=== PATIENT | female | born 1960 | race Caucasian/White ===

== ENCOUNTER 2018-08-10 14:30 | Inpatient (IN) | payer OTHER ==
[2018-08-10 15:24] VITALS: BMI 29.9
--- NOTE | 2018-08-10 18:08 | HP ---
CIWA Score Nausea/Vomitin-No Nausea/No Vomiting Muscle Tremors: 4-Moderate,w/Arms Extend Anxiety: 4-Mod. Anxious/Guarded Agitation: 2 Paroxysmal Sweats: 1-Minimal Palms Moist Orientation: 0-Oriented Tacttile Disturbances: 0-None Auditory Disturbances: 1-Very Mild Visual Disturbances: 0-None Headache: 0-None Present CIWA-Ar Total Score: 12 - Admission Criteria OASAS Guidelines: Admission for Medically Managed Detox: Requires at least one of the followin. CIWA greater than 12 2. Seizures within the past 24 hours 3. Delirium tremens within the past 24 hours 4. Hallucinations within the past 24 hours 5. Acute intervention needed for co occurring medical disorder 6. Acute intervention needed for co occurring psychiatric disorder 7. Severe withdrawal that cannot be handled at a lower level of care (continued vomiting, continued diarrhea, abnormal vital signs) requiring intravenous medication and/or fluids 8. Patient presents the following: CIWA greater than 12 Admission Criteria Met: Admission criteria met Admission ROS S - [facility] Chief Complaint: " my probation send me" Allergies/Adverse Reactions: Allergies Allergy/AdvReac Type Severity Reaction Status Date / Time Sulfa (Sulfonamide AdvReac Severe Difficulty Verified 08/10/18 18:15 Antibiotics) Breathing History of Present Illness: 57 yo female with hx alcohol dependence is here seeking detox for the first time. Reports currently under probation for DWI which occurred December 2017, reports completed rehab at [facility] April 2018. Reports currently drinks two bottles of wine per day with last drink today. PMHX: Pre-diabetes, HTN, anxiety, HDL. Denies suicidal / homicidal ideation or hx of suicidal attempt. Exam Limitations: No Limitations - Ebola screening Have you traveled outside of the country in the last 21 days: No Have you had contact with anyone from an Ebola affected area: No Have you been sick,other than usual withdrawal symptoms: No Do you have a fever: No - Review of Systems Constitutional: No Symptoms Reported EENT: reports: No Symptoms Reported Respiratory: reports: No Symptoms reported Cardiac: reports: No Symptoms Reported : reports: No Symptoms Reported Musculoskeletal: reports: No Symptoms Reported Integumentary: reports: Flushing, Pruritus Neuro: reports: No Symptoms reported Endocrine: reports: Increased Thirst Hematology: reports: No Symptoms Reported Psychiatric: reports: Orientated x3, Anxious Patient History - Patient Medical History Hx Anemia: No Hx Asthma: No Hx Chronic Obstructive Pulmonary Disease (COPD): No Hx Cancer: No Hx Cardiac Disorders: No Hx Congestive Heart Failure: No Hx Hypertension: Yes Hx Hypercholesterolemia: Yes Hx Pacemaker: No HX Cerebrovascular Accident: No Hx Seizures: No Hx Dementia: No Hx Diabetes: Yes (Pre Diabetes on diet mngmt ) Hx Gastrointestinal Disorders: No Hx Liver Disease: No Hx Genitourinary Disorders: No Hx Sexually Transmitted Disorders: No Hx Renal Disease (ESRD): No Hx Thyroid Disease: No Hx Human Immunodeficiency Virus (HIV): No Hx Hepatitis C: No Hx Depression: No Hx Suicide Attempt: No Hx Bipolar Disorder: No Hx Schizophrenia: No Other Medical History: Anxiety, Buerger's disease - Patient Surgical History Past Surgical History: No - PPD History Previous Implant?: No Documented Results: Negative w/o proof PPD to be Administered?: Yes - Reproductive History Patient is a Female of Child Bearing Age (11 -55 yrs old): No - Smoking Cessation Smoking history: Current every day smoker Have you smoked in the past 12 months: Yes Aproximately how many cigarettes per day: 10 Hx Chewing Tobacco Use: No Initiated information on smoking cessation: Yes 'Breaking Loose' booklet given: 08/10/18 - Substance & Tx. History Hx Alcohol Use: Yes Hx Substance Use: Yes Substance Use Type: Alcohol Hx Substance Use Treatment: Yes (outpatient [facility] January - May 05 2018) - Substances Abused Alcohol Route: Oral Frequency: Daily Amount used: 2 bottles of wine Age of first use: 14 Date of Last Use: 08/10/18 Family Disease History - Family Disease History Family Disease History: Diabetes: Father (alcoholism ), Mother (alcoholism ) Admission Physical Exam S - Vital Signs Vital Signs: Vital Signs - 24 hr 08/10/18 15:22 Temperature 99.1 F Pulse Rate 118 H Respiratory 20 Rate Blood Pressure 153/88 - Physical General Appearance: Yes: Appropriately Dressed, Moderate Distress, Tremorous, Sweating, Anxious HEENTM: Yes: EOMI, Hearing grossly Normal, Normal ENT Inspection, Normocephalic , Normal Voice, ANJUM, Pharynx Normal, Tm's normal Respiratory: Yes: Within Normal Limits Neck: Yes: Within Normal Limits Breast: Yes: Breast Exam Deferred Cardiology: Yes: Regular Rhythm, Regular Rate Abdominal: Yes: Normal Bowel Sounds, Non Tender, Flat, Soft Genitourinary: Yes: Within Normal Limits Back: Yes: Normal Inspection Musculoskeletal: Yes: full range of Motion, Gait Steady, Pelvis Stable Extremities: Yes: Normal Capillary Refill, Normal Inspection, Normal Range of Motion Neurological: Yes: building maintenance custodian II-XII NML intact, Fully Oriented, Alert, Motor Strength 5/5, Depressed Affect (tearful during assessment) Integumentary: Yes: Normal Color, Warm, Moist Lymphatic: Yes: Within Normal Limits - Addiitonal Findings: Others' Prescriptions Patient Name: Ksenia Faust Date: 1960 Address: [address] [place] [id number] Sex: Female Rx Written Rx Dispensed Drug Quantity Days Supply Prescriber Name 08/06/2018 08/06/2018 phentermine 37.5 mg tablet 30 30 MD Alford George 08/06/2018 08/06/2018 alprazolam 0.25 mg tablet 14 7 MD Alford George 07/09/2018 07/09/2018 phentermine 37.5 mg tablet 30 30 MD Alford George - Diagnostic (1) Prediabetes Current Visit: Yes Status: Chronic (2) Alcohol dependence with withdrawal Current Visit: Yes Status: Acute Qualifiers: Complication of substance-induced condition: uncomplicated Qualified Code(s ): F10.230 - Alcohol dependence with withdrawal, uncomplicated (3) Hypertension Current Visit: Yes Status: Chronic Qualifiers: Hypertension type: essential hypertension Qualified Code(s): I10 - Essential (primary) hypertension (4) Buerger disease Current Visit: Yes Status: Acute (5) Elevated blood pressure reading Current Visit: Yes Status: Acute Cleared for Admission [facility] - Detox or Rehab [facility] Level of Care: Medically Managed Detox Regimen/Protocol: Librium [facility] Breath Alcohol Content Breath Alcohol Content: 0 Urine Pregancy Test - Result Urine Test Results: Negative- NO Line Present Urine Drug Screen - Results Drug Screen Negative: No Urine Drug Screen Results: AMP-Amphetamines, BZO-Benzodiazepines Inpatient Rehab Admission - Rehab Decision to Admit Inpatient rehab admission?: No
[2018-08-10] MEDS ORDERED: MAGNESIUM HYDROX 2400MG/30ML ORAL SUSPENSION 30 ML CUP PO PRN (18:31)
[2018-08-10] MEDS ORDERED: P-EPHED 60MG/TRIPROLIDI 2.5MG TABLET PO PRN (18:31)
[2018-08-10] MEDS ORDERED: MENTHOL/PHENOL 1 EACH UD MM PRN (18:31)
[2018-08-10] MEDS ORDERED: MAG HYDROX/AL HYDROX/SIMETH 30 ML UNIT-DOSE CUP PO PRN (18:31)
[2018-08-10] MEDS ORDERED: chlordiazePOXIDE HCL 25 MG CAPSULE PO PRN (18:31)
[2018-08-10] MEDS ORDERED: LOPERAMIDE HCL 2 MG CAPSULE PO PRN (18:31)
[2018-08-10] MEDS ORDERED: MAGNESIUM CITRATE 300 ML BOTTLE PO PRN (18:31)
[2018-08-10] MEDS ORDERED: IBUPROFEN 400 MG TABLET (FP) PO PRN (18:31)
[2018-08-10] MEDS ORDERED: guaiFENesin/D-METHORPHAN HB 10 ML UNIT-DOSE CUPS PO PRN (18:31)
[2018-08-10] MEDS ORDERED: ACETAMINOPHEN 325 MG TABLET (FP) PO PRN (18:31)
[2018-08-10] MEDS ORDERED: MELATONIN 5 MG TABLETS PO PRN (22:00)
[2018-08-10] MEDS: ATENOLOL 50 MG TABLET (FP) PO SCH (22:28)
[2018-08-10] MEDS: chlordiazePOXIDE HCL 25 MG CAPSULE PO SCH (22:28)
[2018-08-10] MEDS: THIAMINE HCL 100 MG TABLET (FP) PO SCH (22:29)
[2018-08-10 23:41] LABS: URINE APPEARANCE CLEAR; URINE BILIRUBIN NEGATIVE (<2.0 mg/dL); URINE COLOR LTYELLOW; URINE GLUCOSE (UA) NEGATIVE (NEGATIVE); URINE KETONE NEGATIVE (NEGATIVE); URINE LEUK ESTERASE NEGATIVE (NEGATIVE); URINE NITRITE NEGATIVE (NEGATIVE); URINE PROTEIN NEGATIVE (NEGATIVE); URINE UROBILINOGEN NEGATIVE mg/dL (0.2-1.0)
[2018-08-11] MEDS: hydrOXYzine PAMOATE 50 MG CAPSULE (FP) PO PRN ×4 (03:03→17:04)
[2018-08-11] MEDS: chlordiazePOXIDE HCL 25 MG CAPSULE PO SCH ×4 (06:15→22:30)
--- NOTE | 2018-08-11 09:27 | CONSULT ---
[facility] Psychiatric Consult - Data Date of interview: 08/11/18 Admission source: [facility] Identifying data: Patient is a 57 year old female, mother of three, domiciled, and currently unemployed (was employed at [employer]). This is patient's first admission to detox at [facility]. Patient admitted to for alcohol dependence. Substance Abuse History: Smoking Cessation. Smoking history: Current every day smoker. Have you smoked in the past 12 months: Yes. Aproximately how many cigarettes per day: 10. Hx Chewing Tobacco Use: No. Initiated information on smoking cessation: Yes. 'Breaking Loose' booklet given: 08/10/18. - Substance & Tx. History. Hx Alcohol Use: Yes. Hx Substance Use: Yes. Substance Use Type : Alcohol. Hx Substance Use Treatment: Yes (outpatient [facility] January - May 05 2018). - Substances Abused. Alcohol. Route: Oral. Frequency: Daily. Amount used: 2 bottles of wine. Age of first use: 14. Date of Last Use: 07/29 Medical History: hypertension, hypercholesterolemia, diabetes, buerger's disease Psychiatric History: Patient reports one psychiatric hospitalization at [facility] after throwing herself in front of her vehicle to prevent it from being towed. She was discharged after one night. Patient denies h/o outpatient care and suicide attempt. At present, patient is experiencing difficulty sleeping. Physical/Sexual Abuse/Trauma History: denies. Additional Comment: Was informed by probabtion officer that she needs to attend detox. Patient unsure if this is court mandated. Mental Status Exam - Mental Status Exam Alert and Oriented to: Time, Place, Person Cognitive Function: Good Patient Appearance: Well Groomed Mood: Anxious Affect: Appropriate Patient Behavior: Talkative, Cooperative Speech Pattern: Appropriate Voice Loudness: Normal Thought Process: Intact, Goal Oriented Thought Disorder: Not Present Hallucinations: Denies Suicidal Ideation: Denies Homicidal Ideation: Denies Insight/Judgement: Poor Sleep: Fair Appetite: Fair Muscle strength/Tone: Normal Gait/Station: Normal Psychiatric Findings - Problem List ([place] 1, 2,3) (1) Alcohol-induced sleep disorder Current Visit: Yes Status: Acute (2) Alcohol dependence with withdrawal Current Visit: Yes Status: Acute Qualifiers: Complication of substance-induced condition: uncomplicated Qualified Code(s ): F10.230 - Alcohol dependence with withdrawal, uncomplicated - Initial Treatment Plan Initial Treatment Plan: Psychoeducation provided. Detoxification in progress. Will increase Melatonin 5mg to 10mg qhs. Observation.
[2018-08-11] MEDS: PRENATAL VITAMINS W/ FOLIC ACID TABLET (FP) PO SCH (10:21)
[2018-08-11] MEDS: NICOTINE 21 MG/24 HOURS TOPICAL PATCH TD SCH (10:21)
[2018-08-11 10:55] LABS: ALBUMIN 4.2 g/dl (3.4-5.0); ALK PHOS 76 U/L (45-117); ANION GAP 7 MMOL/L (8-16); BILIRUBIN,TOTAL 0.4 mg/dL (0.2-1); BLOOD UREA NITROGEN 15 mg/dL (7-18); CALCIUM 9.6 mg/dL (8.5-10.1); CHLORIDE 106 mmol/L (98-107); CO2 29 mmol/L (21-32); CREATININE 0.6 mg/dL (0.55-1.3); GLUCOSE,RANDOM 84 mg/dL (74-106); POTASSIUM 4.3 mmol/L (3.5-5.1); SGOT/AST 18 U/L (15-37); SGPT/ALT 46 U/L (13-61); SODIUM 142 mmol/L (136-145)
[2018-08-11 10:58] LABS: HEMOGLOBIN 13.6 GM/dL (10.7-15.3); MCH 32.1 pg (25.7-33.7); MEAN CELL VOLUME 94.4 fl (80-96); MEAN PLT VOLUME 11.1 fl (7.5-11.1); PLATELET COUNT 239 K/MM3 (134-434); RBC 4.24 M/mm3 (3.60-5.2); RDW 14.2 % (11.6-15.6); WHITE BLOOD COUNT 7.5 K/mm3 (4.0-10.0)
--- NOTE | 2018-08-11 11:01 | PN ---
S CIWA - CIWA Score Nausea/Vomitin-No Nausea/No Vomiting Muscle Tremors: 3 Anxiety: 2 Agitation: 3 Paroxysmal Sweats: 2 Orientation: 0-Oriented Tacttile Disturbances: 0-None Auditory Disturbances: 0-None Visual Disturbances: 0-None Headache: 0-None Present CIWA-Ar Total Score: 10 [facility] Progress Note (SOAP) Subjective: sweats anxiety irritable Im on a diet pill but its ok if i cant get it during my stay. Objective: 08/11/18 10:59 Vital Signs Temperature 97.7 F 08/11/18 09:44 Pulse Rate 90 08/11/18 09:44 Respiratory Rate 18 08/11/18 09:44 Blood Pressure 149/77 08/11/18 09:44 O2 Sat by Pulse Oximetry (%) Laboratory Tests 08/10/18 08/11/18 22:45 07:00 Sodium 142 Potassium 4.3 Chloride 106 Carbon Dioxide 29 Anion Gap 7 L BUN 15 Creatinine 0.6 Creat Clearance w eGFR > 60 Random Glucose 84 Calcium 9.6 Total Bilirubin 0.4 AST 18 ALT 46 Alkaline Phosphatase 76 Total Protein 7.0 Albumin 4.2 Urine Color Ltyellow Urine Appearance Clear Urine pH 5.0 Ur Specific [place] 1.017 Urine Protein Negative Urine Glucose (UA) Negative Urine Ketones Negative Urine Blood Negative Urine Nitrite Negative Urine Bilirubin Negative Urine Urobilinogen Negative Ur Leukocyte Esterase Negative aaox3 ambulating no acute distress Assessment: 08/11/18 11:00 withdrawal sx Plan: continue detox increase fluids pt was told her diet pills are a stimulant and unsafe to take during her stay with all the medication we are providing. pt is in agreement and will take it after she completes her detox.
--- NOTE | 2018-08-11 15:46 | EKG ---
Test Reason : Blood Pressure : / mmHG Vent. Rate : 106 BPM Atrial Rate : 106 BPM P-R Int : 168 ms QRS Dur : 086 ms QT Int : 360 ms P-R-T Axes : 063 053 061 degrees QTc Int : 478 ms SINUS TACHYCARDIA OTHERWISE NORMAL ECG NO PREVIOUS ECGS AVAILABLE Confirmed by MATT TIJERINA MD ([id number]) on 08/11/2018 3:46:00 PM Referred By: Confirmed By:MATT TIJERINA MD
[2018-08-11] MEDS: ATENOLOL 50 MG TABLET (FP) PO SCH (22:30)
[2018-08-11] MEDS: THIAMINE HCL 100 MG TABLET (FP) PO SCH (22:30)
[2018-08-11] MEDS: MELATONIN 5 MG TABLETS PO PRN (22:31)
[2018-08-12] MEDS: chlordiazePOXIDE HCL 25 MG CAPSULE PO SCH ×3 (05:42→17:21)
--- NOTE | 2018-08-12 11:47 | PN ---
[facility] CIWA - CIWA Score Nausea/Vomitin-No Nausea/No Vomiting Muscle Tremors: 3 Anxiety: 2 Agitation: 2 Paroxysmal Sweats: 2 Orientation: 0-Oriented Tacttile Disturbances: 0-None Auditory Disturbances: 0-None Visual Disturbances: 0-None Headache: 0-None Present CIWA-Ar Total Score: 9 S Progress Note (SOAP) Subjective: anxiety sweats Objective: 08/12/18 11:46 Vital Signs Temperature 98.1 F 08/12/18 09:30 Pulse Rate 99 H 08/12/18 09:30 Respiratory Rate 18 08/12/18 09:30 Blood Pressure 145/55 L 08/12/18 09:30 O2 Sat by Pulse Oximetry (%) Laboratory Tests 08/10/18 08/11/18 08/11/18 22:45 07:00 07:00 WBC 7.5 RBC 4.24 Hgb 13.6 Hct 40.0 MCV 94.4 MCH 32.1 MCHC 34.0 RDW 14.2 Plt Count 239 MPV 11.1 Sodium 142 Potassium 4.3 Chloride 106 Carbon Dioxide 29 Anion Gap 7 L BUN 15 Creatinine 0.6 Creat Clearance w eGFR > 60 Random Glucose 84 Calcium 9.6 Total Bilirubin 0.4 AST 18 ALT 46 Alkaline Phosphatase 76 Total Protein 7.0 Albumin 4.2 Urine Color Ltyellow Urine Appearance Clear Urine pH 5.0 Ur Specific [place] 1.017 Urine Protein Negative Urine Glucose (UA) Negative Urine Ketones Negative Urine Blood Negative Urine Nitrite Negative Urine Bilirubin Negative Urine Urobilinogen Negative Ur Leukocyte Esterase Negative RPR Titer 08/11/18 07:00 WBC RBC Hgb Hct MCV MCH MCHC RDW Plt Count MPV Sodium Potassium Chloride Carbon Dioxide Anion Gap BUN Creatinine Creat Clearance w eGFR Random Glucose Calcium Total Bilirubin AST ALT Alkaline Phosphatase Total Protein Albumin Urine Color Urine Appearance Urine pH Ur Specific [place] Urine Protein Urine Glucose (UA) Urine Ketones Urine Blood Urine Nitrite Urine Bilirubin Urine Urobilinogen Ur Leukocyte Esterase RPR Titer Nonreactive aaox3 ambulating no acute distress Assessment: 08/12/18 11:46 mild withdrawal sx Plan: continue detox increase fluids
[2018-08-12] MEDS: PRENATAL VITAMINS W/ FOLIC ACID TABLET (FP) PO SCH (11:55)
[2018-08-12] MEDS: NICOTINE 21 MG/24 HOURS TOPICAL PATCH TD SCH (11:55)
[2018-08-12] MEDS: hydrOXYzine PAMOATE 50 MG CAPSULE (FP) PO PRN (14:26)
[2018-08-12] MEDS: ATENOLOL 50 MG TABLET (FP) PO SCH (22:16)
[2018-08-12] MEDS: chlordiazePOXIDE 5 MG CAPSULE PO SCH (22:17)
[2018-08-12] MEDS: THIAMINE HCL 100 MG TABLET (FP) PO SCH (22:17)
[2018-08-12] MEDS: MELATONIN 5 MG TABLETS PO PRN (22:17)
[2018-08-12] MEDS: NICOTINE POLACRILEX 2 MG GUM BC PRN (22:20)
[2018-08-13] MEDS: hydrOXYzine PAMOATE 50 MG CAPSULE (FP) PO PRN ×5 (00:01→22:07)
[2018-08-13] MEDS: chlordiazePOXIDE 5 MG CAPSULE PO SCH ×3 (05:47→17:22)
[2018-08-13] MEDS: NICOTINE POLACRILEX 2 MG GUM BC PRN ×3 (05:49→22:08)
[2018-08-13] MEDS: PRENATAL VITAMINS W/ FOLIC ACID TABLET (FP) PO SCH (10:37)
[2018-08-13] MEDS: NICOTINE 21 MG/24 HOURS TOPICAL PATCH TD SCH (10:37)
--- NOTE | 2018-08-13 14:40 | PN ---
[facility] Progress Note (SOAP) Subjective: pt states she is here b/c of legal case- that mandates detox and terminal make up operator rehab for DWI. Pt prefers to go home and be with her kids rather than the court mandated rehab O: Vital Signs - 24 hr 08/12/18 08/12/18 08/13/18 18:03 22:51 00:30 Temperature 98 F 98.2 F Pulse Rate 84 88 Respiratory 18 18 18 Rate Blood Pressure 135/70 107/76 08/13/18 08/13/18 08/13/18 03:30 08:53 09:53 Temperature 97.9 F 97.5 F L Pulse Rate 74 78 Respiratory 18 18 18 Rate Blood Pressure 138/80 116/69 08/13/18 13:52 Temperature 97.7 F Pulse Rate 77 Respiratory 16 Rate Blood Pressure 140/78 Laboratory Tests 08/10/18 08/11/18 08/11/18 22:45 07:00 07:00 WBC 7.5 RBC 4.24 Hgb 13.6 Hct 40.0 MCV 94.4 MCH 32.1 MCHC 34.0 RDW 14.2 Plt Count 239 MPV 11.1 Sodium 142 Potassium 4.3 Chloride 106 Carbon Dioxide 29 Anion Gap 7 L BUN 15 Creatinine 0.6 Creat Clearance w eGFR > 60 Random Glucose 84 Calcium 9.6 Total Bilirubin 0.4 AST 18 ALT 46 Alkaline Phosphatase 76 Total Protein 7.0 Albumin 4.2 Urine Color Ltyellow Urine Appearance Clear Urine pH 5.0 Ur Specific [place] 1.017 Urine Protein Negative Urine Glucose (UA) Negative Urine Ketones Negative Urine Blood Negative Urine Nitrite Negative Urine Bilirubin Negative Urine Urobilinogen Negative Ur Leukocyte Esterase Negative RPR Titer 08/11/18 07:00 WBC RBC Hgb Hct MCV MCH MCHC RDW Plt Count MPV Sodium Potassium Chloride Carbon Dioxide Anion Gap BUN Creatinine Creat Clearance w eGFR Random Glucose Calcium Total Bilirubin AST ALT Alkaline Phosphatase Total Protein Albumin Urine Color Urine Appearance Urine pH Ur Specific [place] Urine Protein Urine Glucose (UA) Urine Ketones Urine Blood Urine Nitrite Urine Bilirubin Urine Urobilinogen Ur Leukocyte Esterase RPR Titer Nonreactive a/p: continue detox protocol, pt to f/u counselor re rehab options.
[2018-08-13] MEDS: THIAMINE HCL 100 MG TABLET (FP) PO SCH (22:05)
[2018-08-13] MEDS: chlordiazePOXIDE HCL 10 MG CAPSULE PO SCH (22:05)
[2018-08-13] MEDS: ATENOLOL 50 MG TABLET (FP) PO SCH (22:06)
[2018-08-13] MEDS: MELATONIN 5 MG TABLETS PO PRN (22:07)
[2018-08-14] MEDS: chlordiazePOXIDE HCL 10 MG CAPSULE PO SCH ×2 (05:47→11:12)
[2018-08-14] MEDS: NICOTINE POLACRILEX 2 MG GUM BC PRN (05:49)
[2018-08-14 09:42] VITALS: BP 131/74; PULSE 79; TEMP 97.2
[2018-08-14] MEDS: PRENATAL VITAMINS W/ FOLIC ACID TABLET (FP) PO SCH (10:09)
[2018-08-14] MEDS: NICOTINE 21 MG/24 HOURS TOPICAL PATCH TD SCH (10:10)
--- NOTE | 2018-08-14 13:56 | DS ---
[facility] Detox Discharge Summary Admission Date: 08/10/18 Discharge Date: 08/14/18 - History Present History: Alcohol Dependence - Physical Exam Results Vital Signs: Vital Signs Temperature 97.2 F L 08/14/18 09:42 Pulse Rate 79 08/14/18 09:42 Respiratory Rate 18 08/14/18 09:42 Blood Pressure 131/74 08/14/18 09:42 O2 Sat by Pulse Oximetry (%) - Treatment Hospital Course: Detox Protocol Followed, Detoxed Safely, Responded well, Discharged Condition Good, Rehab Referral Accepted Patient has Accepted a Rehab Referral to: PATIENT TO FOLLOW UP INDEPENDENTLY WITH [facility] - Medication Discharge Medications: Ambulatory Orders Alprazolam 0.25 mg PO BID 08/10/18 Phentermine HCl [Adipex-P] 37.5 mg PO DAILY 08/10/18 Atenolol [Tenormin -] 100 mg PO HS #14 tablet 08/14/18 hydrOXYzine PAMOATE [Vistaril -] 50 mg PO Q6H PRN #30 capsule 08/14/18 - Diagnosis (1) Alcohol dependence Status: Chronic Qualifiers: Substance use status: uncomplicated Qualified Code(s): F10.20 - Alcohol dependence, uncomplicated (2) Hypertension Status: Chronic Qualifiers: Hypertension type: essential hypertension Qualified Code(s): I10 - Essential (primary) hypertension - AMA Did Patient Leave Against Medical Advice: No
== END 2018-08-14 11:12 | disposition home or self-care (01) | DRG 897 ==
LOC: YASAS 14:30 → Y6N 18:41
PROVIDERS: ADMIT Surgery; ATTEND Surgery
PROC: HZ2ZZZZ Detoxification Services for Substance Abuse Treatment (ICD-10-PCS; principal; 2018-08-10)
DX: F10.230 Alcohol dependence with withdrawal, uncomplicated (principal); F10.282 Alcohol dependence with alcohol-induced sleep disorder; F17.210 Nicotine dependence, cigarettes, uncomplicated; I10 Essential (primary) hypertension; E78.00 Pure hypercholesterolemia, unspecified; I73.1 Thromboangiitis obliterans [Buerger's disease]; R73.03 Prediabetes; Z88.2 Allergy status to sulfonamides
CPT/HCPCS: 36415; 80053; 81003; 85027; 86593; 93005; 93010